=== PATIENT | male | born 1990 | race Caucasian/White ===

== ENCOUNTER 2019-05-15 07:02 | Emergency (ER) | payer MEDICAID ==
[2019-05-15 07:07] VITALS: BP 115/60; Wt 60.0 kg
[2019-05-15] MEDS ORDERED: ERYTHROMYCIN OPT1 GM EACH EYE (07:32)
== END 2019-05-15 07:46 | disposition home or self-care (01) ==
LOC: D.ER 07:02
DX: S05.02XA Injury of conjunctiva and corneal abrasion without foreign body, left eye, initial encounter (principal); X58.XXXA Exposure to other specified factors, initial encounter